=== PATIENT | female | born 1960 | race Caucasian/White ===

== ENCOUNTER 2016-07-12 07:24 | Outpatient (CLI) | payer OTHER ==
[2012-08-13 10:47] VITALS: BP 124/80
[2016-07-12 16:02] LABS: T3 FREE 3.27 pg/mL (2.00-4.40)
== END 2016-07-12 07:25 ==
LOC: LAB 07:24
PROVIDERS: ATTEND Family Medicine
DX: E11.9 Type 2 diabetes mellitus without complications (principal)
CPT/HCPCS: 36415; 80061; 82043; 83036; 84436; 84439; 84443; 84479; 84481